=== PATIENT | female | born 1990 | race Caucasian/White ===

== ENCOUNTER 2021-06-10 01:40 | Inpatient (IN) | payer SELFPAY ==
[2021-06-10] MEDS ORDERED: Sodium Chloride 0.9% 10 ML Syringe FLUSH PRN (02:27)
[2021-06-10] MEDS ORDERED: Lidocaine 1% 50 ML MDV ONE (02:36)
[2021-06-10 02:51] LABS: CORONAVIRUS COVID-19 NAA NEGATIVE (NEGATIVE)
[2021-06-10] MEDS ORDERED: Acetaminophen 325 MG Tab, 50 Tab Bulk Bottle PO PRN (03:00)
[2021-06-10] MEDS ORDERED: Hydrocortisone 2.5% Crm 30 GM Tube TOP PRN (03:00)
[2021-06-10] MEDS ORDERED: Benzocaine 20% Top Spray 56 GM Bottle TOP ONE (03:00)
[2021-06-10] MEDS ORDERED: Witch Hazel Medicated Pads 100/Jar TOP ONE (03:00)
[2021-06-10] MEDS ORDERED: Lanolin 100% Cream 40 GM Tube TOP ONE (03:00)
[2021-06-10] MEDS ORDERED: Ibuprofen 200 MG Tab, 24 Tab Bulk Bottle PO PRN (03:00)
[2021-06-10] MEDS ORDERED: Benzocaine 20% Top Spray 56 GM Bottle TOP PRN (07:08)
[2021-06-10] MEDS ORDERED: Lanolin 100% Cream 40 GM Tube TOP PRN (07:10)
[2021-06-10] MEDS ORDERED: Witch Hazel Medicated Pads 100/Jar TOP PRN (07:12)
== END 2021-06-11 13:11 | disposition home or self-care (01) | DRG 807 ==
LOC: JP.OBCHECK 01:40 → JP.OB 01:40 → JP.OBCHECK 02:00 → OBSVTOIN 02:42 → JP.MS 05:15
PROVIDERS: ADMIT Nurse Practitioner Family; ATTEND Nurse Practitioner Family
PROC: 10E0XZZ Delivery of Products of Conception, External Approach (ICD-10-PCS; principal; 2021-06-10)
PROC: 10907ZC Drainage of Amniotic Fluid, Therapeutic from Products of Conception, Via Natural or Artificial Opening (ICD-10-PCS; 2021-06-10)
DX: O48.0 Post-term pregnancy (principal); Z37.0 Single live birth; Z3A.41 41 weeks gestation of pregnancy; Z20.822 Contact with and (suspected) exposure to COVID-19
CPT/HCPCS: 0241U; 36415; 81001; 85027; 99211; A9270-GY; J2590